=== PATIENT | female | born 1955 | race Caucasian/White ===

== ENCOUNTER 2023-11-15 16:35 | Observation (INO) | payer MEDICARE ==
[2023-11-15] VITALS (16 sets, daily range): BP systolic 84–192; BP diastolic 48–93
[~2023-11-15] VITALS: Ht 167.6 cm; Wt 78.0 kg
[2023-11-15] MEDS ORDERED: cefTRIAXone SODIUM 2 GM in SODIUM CHLORIDE 0.9% 100 ML IV ONE (16:55)
[2023-11-15] MEDS ORDERED: SODIUM CHLORIDE 0.9% 1,000 ML IV ONE ×3 (16:55→19:15)
[2023-11-15] MEDS ORDERED: methylPREDNISolone SODIUM SUCC 125 MG/2 ML SDV IV ONE (16:55)
[2023-11-15] MEDS ORDERED: IPRATROPIUM-Albuterol 0.5MG-2.5MG/3 ML NEB ONE ×2 (16:55)
[2023-11-15] MEDS ORDERED: AZITHROMYCIN 500 MG in SODIUM CHLORIDE 0.9% 250 ML IV ONE (16:55)
[2023-11-15 17:34] LABS: BASO% 0.2 % (0-3); EOS% 0.3 % (0-8); HEMATOCRIT 47.9 % (37.0-47.0); IMMATURE GRANULOCYTES 0.3 % (0.0-5.0); LYMPH% 10.4 % (15-41); MEAN CELL VOLUME 88.7 fL CALC (80.0-100.0); MEAN CORPUSCULAR HGB 29.6 pG CALC (26.0-32.0); MEAN CORPUSCULAR HGB CONC 33.4 g/dL CAL (32.0-36.0); MONO% 7.7 % (2-13); NEUT# 12.99 thou/uL (2.00-7.15); NEUT% 81.1 % (42-76); RED BLOOD COUNT 5.4 mill/uL (4.20-5.60); RED CELL DISTRI WIDTH 12.8 % (11.5-15.5)
[2023-11-15 17:42] LABS: ALBUMIN 4.8 g/dL (3.2-5.0); ALKALINE PHOSPHATASE 97 u/l (38-126); ANION GAP 12 (6-22 (CALC)); BILIRUBIN, TOTAL 1.3 mg/dL (0.02-1.3); BUN 19 mg/dL (8-23); BUN/CREATININE RATIO 18 (12-20 (CALC)); CARBON DIOXIDE 30 mmol/l (22-30); CHLORIDE 98 mmol/l (95-108); GFR FOR AFR.AMER. > 60 ML/MIN (>=60 (CALC)); GFR OTHER RACES 55 ML/MIN (>=60 (CALC)); POTASSIUM 4.5 mmol/l (3.5-5.1); SGOT/AST 40 u/l (9-36); SODIUM 137 mmol/l (137-146); TOTAL PROTEIN 8.5 g/dL (6.3-8.2)
[2023-11-15] MEDS ORDERED: DULOXETINE HCL60 MG PO (19:15)
[2023-11-15] MEDS ORDERED: PANTOPRAZOLE SO40 M1 PO (19:18)
[2023-11-15] MEDS ORDERED: AMLODIPINE BESY10 MG PO (19:18)
[2023-11-15] MEDS ORDERED: IRBESARTAN150 M1 PO (19:18)
[2023-11-15] MEDS ORDERED: TRAMADOL HCL50 MG PO (19:19)
[2023-11-15] MEDS ORDERED: CYANOCOBAL1000 MCG/M SC (19:20)
[2023-11-15] MEDS ORDERED: ACETAMINOPHEN 325 MG/TAB PO PRN (20:15)
[2023-11-15] MEDS ORDERED: MAGNESIUM HYDROXIDE 30 ML UDC PO PRN (20:15)
[2023-11-15] MEDS ORDERED: SODIUM CHLORIDE 0.9% 1,000 ML IV PRN (20:15)
[2023-11-15] MEDS ORDERED: ENOXAPARIN SODIUM 40 MG/0.4 ML SYR SC SCH (21:00)
[2023-11-15] MEDS ORDERED: IPRATROPIUM-Albuterol 0.5MG-2.5MG/3 ML NEB SCH (23:00)
[2023-11-16 03:59] VITALS: BP 112/47
[2023-11-16 05:54] LABS: MEAN CORPUSCULAR HGB 29.5 pG CALC (26.0-32.0); MEAN CORPUSCULAR HGB CONC 32.8 g/dL CAL (32.0-36.0); RED BLOOD COUNT 4.1 mill/uL (4.20-5.60)
[2023-11-16] MEDS ORDERED: methylPREDNISolone Sod Succ 40 MG/ML SDV IV SCH (06:00)
[2023-11-16 06:14] LABS: HEMATOCRIT 36.9 % (37.0-47.0); HEMOGLOBIN 12.1 g/dl (12.0-16.0)
[2023-11-16 06:19] LABS: ALKALINE PHOSPHATASE 79 u/l (38-126); BUN 14 mg/dL (8-23); BUN/CREATININE RATIO 25 (12-20 (CALC)); CREATININE 0.6 mg/dL (0.5-1.0); GFR FOR AFR.AMER. > 60 ML/MIN (>=60 (CALC)); GFR OTHER RACES > 60 ML/MIN (>=60 (CALC)); MAGNESIUM 1.7 mg/dL (1.6-2.3); POTASSIUM 4.4 mmol/l (3.5-5.1); SGOT/AST 33 u/l (9-36); SODIUM 139 mmol/l (137-146)
[2023-11-16 06:22] LABS: ALBUMIN 3.2 g/dL (3.2-5.0); ANION GAP 11 (6-22 (CALC)); BILIRUBIN, TOTAL 0.3 mg/dL (0.02-1.3); CARBON DIOXIDE 21 mmol/l (22-30); CHLORIDE 111 mmol/l (95-108); TOTAL PROTEIN 5.6 g/dL (6.3-8.2)
[2023-11-16 07:00] VITALS: BP 115/69
[2023-11-16] MEDS ORDERED: MEDDOSEPAK PO (10:19)
[2023-11-16] MEDS ORDERED: ZPAK PO (10:19)
[2023-11-16] MEDS ORDERED: VENTOLIN HFA108 MCG IN (10:20)
[2023-11-16 11:25] VITALS: BP 133/67
[2023-11-16] MEDS ORDERED: AZITHROMYCIN 500 MG in SODIUM CHLORIDE 0.9% 250 ML IV SCH (21:00)
== END 2023-11-16 11:41 | disposition home or self-care (01) ==
LOC: ED 16:35 → ED-I 18:20 → ED 20:42 → MS2 20:43
PROVIDERS: Family Medicine; ADMIT Student in an Organized Health Care Education/Training Program; ATTEND Student in an Organized Health Care Education/Training Program
DX: J44.1 Chronic obstructive pulmonary disease with (acute) exacerbation (principal); J96.01 Acute respiratory failure with hypoxia; I10 Essential (primary) hypertension; K21.9 Gastro-esophageal reflux disease without esophagitis; F17.200 Nicotine dependence, unspecified, uncomplicated; Z86.711 Personal history of pulmonary embolism; Z20.822 Contact with and (suspected) exposure to COVID-19
CPT/HCPCS: J1650; Q9967